=== PATIENT | male | born 1995 | race African-American/Black ===

== ENCOUNTER 2018-08-27 07:12 | Emergency (ER) | payer OTHER, BC ==
--- NOTE | 2018-08-27 07:25 | ED ---
Medical Screening - HPI Summary HPI Summary: Patient is a 22 y/o M presenting to ED with police for a legal blood draw. Patient does not request that he be seen by/receive medical screening from doctor. On triage, pain is denied. Home medications and allergies are reviewed. - History of Current Complaint Chief Complaint: EDGeneral Stated Complaint: LEGAL BLOOD DRAW Time Seen by Provider: 08/27/18 07:18 Onset/Duration: Still Present Severity: mild - pain denied on triage Associated Signs and Symptoms: Negative PMH/Surg Hx/FS Hx/Imm Hx Endocrine/Hematology History: Denies: Hx Anticoagulant Therapy, Hx Diabetes, Hx Thyroid Disease Cardiovascular History: Denies: Hx Congestive Heart Failure, Hx Deep Vein Thrombosis, Hx Hypertension , Hx Myocardial Infarction, Hx Pacemaker/ICD Respiratory History: Denies: Hx Asthma, Hx Chronic Obstructive Pulmonary Disease (COPD), Hx Lung Cancer, Hx Pneumonia, Hx Pulmonary Embolism GI History: Denies: Hx Gall Bladder Disease, Hx Gastrointestinal Bleed, Hx Ulcer, Hx Urosepsis History: Denies: Hx Kidney Stones, Hx Renal Disease Sensory History: Denies: Hx Hearing Aid Neurological History: Denies: Hx Dementia, Hx Migraine, Hx Seizures, Hx Transient Ischemic Attacks (TIA) Psychiatric History: Denies: Hx Anxiety, Hx Depression, Hx Panic Disorder, Hx Schizophrenia, Hx Bipolar Disorder Infectious Disease History: No Infectious Disease History: Denies: Traveled Outside the [place] in Last 30 Days - Family History Known Family History: Negative: Cardiac Disease, Hypertension - Social History Alcohol Use: Occasionally Substance Use Type: Reports: None Smoking Status (MU): Never Smoked Tobacco Review of Systems Negative: Fever - on vitals, temp is 98.3 F Negative: Abdominal Pain - pain denied All Other Systems Reviewed And Are Negative: Yes Physical Exam - Summary Physical Exam Summary: Appearance: Well appearing, no pain distress Skin: warm, dry, reflects adequate perfusion Head/face: normal Eyes: EOMI, OSCAR Neck: supple Musculoskeletal: normal, strength/ROM intact Neuro: normal, sensory motor intact, A&Ox3 Triage Information Reviewed: Yes Vital Signs On Initial Exam: Initial Vitals Temp Pulse Resp BP Pulse Ox 98.3 F 88 16 159/76 100 08/27/18 07:13 08/27/18 07:13 08/27/18 07:13 08/27/18 07:13 08/27/18 07:13 Vital Signs Reviewed: Yes Diagnostics - Vital Signs Vital Signs Temp Pulse Resp BP Pulse Ox 08/27/18 07:13 98.3 F 88 16 159/76 100 - Laboratory Lab Statement: Any lab studies that have been ordered have been reviewed, and results considered in the medical decision making process. Course/Dx - Course Course Of Treatment: Pt was not seen by me -- pt refused MSE. - Diagnoses Provider Diagnoses: Encounter for blood test Discharge - Sign-Out/Discharge Documenting (check all that apply): Patient Departure - discharge - Discharge Plan Condition: Stable Disposition: HOME Referrals: No Primary Care Phys,NOPCP [Primary Care Provider] - - Billing Disposition and Condition Condition: STABLE Disposition: Home - Attestation Statements Document Initiated by Scribe: Yes Documenting Scribe: Trey De La Rosa Provider For Whom Jaeibe is Documenting (Include Credential): Bryson Manzano MD Scribe Attestation: Trey Slater , scribed for Bryson Manzano MD on 08/27/18 at 0733. Scribe Documentation Reviewed: Yes Provider Attestation: The documentation as recorded by the Trey sierra accurately reflects the service I personally performed and the decisions made by Bryson rhodes MD
[2018-08-27 07:44] VITALS: BP 00/0
== END 2018-08-27 07:43 | disposition home or self-care (01) ==
LOC: ED 07:12
DX: Z02.83 Encounter for blood-alcohol and blood-drug test (principal)
CPT/HCPCS: 99282